=== PATIENT | female | born 1985 | race Caucasian/White ===

== ENCOUNTER 2018-01-25 09:55 | Day surgery (SDC) | payer OTHER ==
[~2018-01-25 09:55] MED LIST: PROGESTERONE200 MG PO
== END 2018-01-25 15:20 | disposition home or self-care (01) ==
LOC: CIR.AMB 09:55
DX: O02.1 Missed abortion (principal)

== ENCOUNTER 2018-10-12 09:46 | Outpatient (CLI) | payer OTHER | END 2018-10-12 10:36 | disposition home or self-care (01) | LOC: NST 09:46 | DX: Z34.83 Encounter for supervision of other normal pregnancy, third trimester (principal) ==

== ENCOUNTER 2018-11-22 06:28 | Inpatient (IN) | payer OTHER ==
[~2018-11-22] VITALS: Ht 167.6 cm; Wt 70.3 kg
[2018-11-22] MEDS ORDERED: PRENATAL TABLE1 EACH PO (08:17)
[2018-11-22] MEDS ORDERED: INTEGRA F CAPS1 EACH PO (08:54)
== END 2018-11-24 12:21 | disposition home or self-care (01) | DRG 768 ==
LOC: LDR 06:28 → OB/GYN 19:44
PROVIDERS: ADMIT Obstetrics & Gynecology
PROC: 10E0XZZ Delivery of Products of Conception, External Approach (ICD-10-PCS; principal; 2018-11-22)
PROC: 0DQR0ZZ Repair Anal Sphincter, Open Approach (ICD-10-PCS; 2018-11-22)
PROC: 0W8NXZZ Division of Female Perineum, External Approach (ICD-10-PCS; 2018-11-22)
PROC: 4A1HXCZ Monitoring of Products of Conception, Cardiac Rate, External Approach (ICD-10-PCS; 2018-11-22)
DX: O70.21 Third degree perineal laceration during delivery, IIIa (principal); Z37.0 Single live birth; Z3A.39 39 weeks gestation of pregnancy